=== PATIENT | male | born 1940 | race Caucasian/White ===

== ENCOUNTER 2017-11-15 05:40 | Inpatient (IN) | payer OTHER ==
[~2017-11-15] VITALS: Ht 175.3 cm; Wt 81.6 kg
[2017-11-15] MEDS ORDERED: SODIUM CHLORIDE 0.9% 1,000 ML IV ONE (06:21)
[2017-11-15] MEDS ORDERED: ASPIRIN 325MG TABLET PO ONE (06:30)
[2017-11-15] MEDS ORDERED: NITROGLYCERIN OINT 1GM/INCH UDPKT TD ONE (06:30)
[2017-11-15 07:18] LABS: HEMOGLOBIN. 15.2 g/dL (14.0-18.0); MEAN CORPUSCULAR HEMOGLOBIN 29.7 pg (28.0-32.0); MEAN CORPUSCULAR VOLUME 87.6 fL (80.0-94.0); MEAN PLATELET VOLUME 10.6 fl (7.4-10.4); PLATELET 162 x1000/uL (130-400); RED BLOOD CELL COUNT 5.13 mill/uL (4.7-6.1); RED CELL DISTRIBUTION WIDTH 14.6 % (11.6-14.6)
[2017-11-15 07:24] LABS: CHLORIDE 106 mEq/L (98-107)
[2017-11-15 07:29] LABS: ETHANOL BLOOD < 10 mg/dL
[2017-11-15 07:59] LABS: PLATELET ESTIMATE NORMAL
[2017-11-15 08:08] LABS: D-DIMER 0.3 mg/L FEU (<0.50); INR 1.1; PROTHROMBIN TIME 11.4 sec (9.1-11.1)
[2017-11-15 08:30] VITALS: BP 109/64
[2017-11-15] MEDS ORDERED: ACETAMINOPHEN 325MG TABLET PO PRN (10:30)
[2017-11-15] MEDS ORDERED: ONDANSETRON HCL 4MG/2ML INJ IV PRN (10:30)
[2017-11-15] MEDS ORDERED: HYDROCODONE/ACETAMINOPHEN 5/325MG TABLET PO PRN (10:30)
[2017-11-15] MEDS ORDERED: IPRATROPIUM/ALBUTEROL 0.5-3(2.5)MG/3ML NEB INH PRN (10:30)
[2017-11-15] MEDS ORDERED: ASPIRIN 81MG EC TABLET PO SCH (11:15)
[2017-11-15] MEDS: METOPROLOL TARTRATE 25MG TABLET PO SCH ×2 (12:00→21:00)
[2017-11-15] MEDS: ENOXAPARIN 40MG/0.4ML SYR SUBCUT SCH (13:15)
[2017-11-15] MEDS: SODIUM CHLORIDE 0.45% 1,000 ML IV SCH (15:02)
[2017-11-15 15:48] LABS: CREATINE KINASE MB FRACTION 3.6 ng/mL (0.5-3.6)
[2017-11-15 16:00] VITALS: BP 100/53
[2017-11-15] MEDS ORDERED: ATORVASTATIN CALCIUM 40MG TABLET PO SCH (21:00)
[2017-11-16 01:44] LABS: CREATINE KINASE MB FRACTION 2.1 ng/mL (0.5-3.6)
[2017-11-16 06:27] LABS: BASOPHILS % 0.3 % (0.0-2.0); EOSINOPHILS % 1.1 % (0.0-5.0); HEMATOCRIT. 39.1 % (42.0-52.0); HEMOGLOBIN. 13.3 g/dL (14.0-18.0); LYMPHOCYTES % 18.5 % (20.0-50.0); MEAN CORPUSCULAR HEMOGLOBIN 29.9 pg (28.0-32.0); MEAN CORPUSCULAR VOLUME 88.1 fL (80.0-94.0); MEAN PLATELET VOLUME 10.6 fl (7.4-10.4); NEUTROPHILS % 67.1 % (40.0-76.0); PLATELET 131 x1000/uL (130-400); RED BLOOD CELL COUNT 4.44 mill/uL (4.7-6.1); RED CELL DISTRIBUTION WIDTH 14.5 % (11.6-14.6)
[2017-11-16 06:36] LABS: CHLORIDE 104 mEq/L (98-107)
[2017-11-16 06:45] LABS: LDL CHOLESTEROL 71 mg/dL (5-100)
[2017-11-16 06:46] LABS: HDL CHOLESTEROL 39 mg/dL (40-59)
[2017-11-16 06:47] LABS: T4 FREE 0.79 ng/dL (0.76-1.46)
[2017-11-16 08:20] VITALS: BP 102/63
[2017-11-16] MEDS: SODIUM CHLORIDE 0.45% 1,000 ML IV SCH (08:31)
[2017-11-16] MEDS: METOPROLOL TARTRATE 25MG TABLET PO SCH (08:34)
[2017-11-16] MEDS ORDERED: ASPIRIN 81MG EC TABLET PO SCH (09:00)
[2017-11-16] MEDS ORDERED: REGADENOSON 0.4 MG/5 ML IV NR (10:00)
[2017-11-16] MEDS: ENOXAPARIN 40MG/0.4ML SYR SUBCUT SCH (10:55)
[2017-11-16 12:00] VITALS: BP 116/78
[2017-11-16] MEDS ORDERED: REGADENOSON 0.4 MG/5 ML IV ONE (12:35)
[2017-11-16 16:09] VITALS: BP 116/78
== END 2017-11-16 16:53 | disposition home or self-care (01) | DRG 280 ==
LOC: ER 05:40 → EDBEDREQ 06:33 → 8WST 07:53 → EDBEDREQ 07:56 → EDBEDREQTM 07:56 → ENRESERV 07:57
PROVIDERS: ADMIT Internal Medicine; ATTEND Internal Medicine
DX: I21.4 Non-ST elevation (NSTEMI) myocardial infarction (principal); I50.33 Acute on chronic diastolic (congestive) heart failure; I47.1 Supraventricular tachycardia; I48.92 Unspecified atrial flutter; D64.9 Anemia, unspecified; E07.81 Sick-euthyroid syndrome; R73.9 Hyperglycemia, unspecified; E66.9 Obesity, unspecified; I11.0 Hypertensive heart disease with heart failure; I45.10 Unspecified right bundle-branch block; N28.9 Disorder of kidney and ureter, unspecified; Z68.26 Body mass index [BMI] 26.0-26.9, adult; Z87.891 Personal history of nicotine dependence; Z79.899 Other long term (current) drug therapy
CPT/HCPCS: 36415; 71045; 78452; 80048; 80053; 80061; 82550; 82553; 83036; 83735; 83880; 84439; 84443; 84484; 85025; 85379; 85610; 93005; 93017; 93306; 96360; 96361; 99285; A9500; G0482; J1650; J2785; J7030